=== PATIENT | male | born 1980 | race Caucasian/White ===

== ENCOUNTER 2023-11-04 16:40 | Emergency (ER) | payer OTHER, SELFPAY ==
[2023-11-04 16:52] VITALS: BP 178/99; PULSE 68; TEMP 37.2; O2SAT 96
--- NOTE | 2023-11-04 16:57 | XR_ITS ---
The [address] [address] Patient Name: YAMILEX JARAMILLO MRN: [id number] date: 1980 Sex: M Assigned Patient Location: ER Current Patient Location: ED.MAIN Accession/Order Number: [id number] Exam Date: 11/04/2023 17:45 Report Date: 11/04/2023 18:14 At the request of: ZAY CARBONE Procedure: XR hand RT min 3V Exam: Radiographs: XR hand RT min 3V Reason for exam: injury Comparison: None XR/XR hand RT min 3V IMPRESSION: Acute nondisplaced right fifth metacarpal fracture distally. Remainder of the right hand radiographs is unremarkable. Electronically authenticated by: JOSÉ ANTONIO RUTLEDGE Date: 11/04/2023 18:14
--- NOTE | 2023-11-04 18:26 | ED.UPPEXIN1 ---
HPI HPI - Extremity Injury (Upper) General Chief Complaint: Extremity Injury, Upper Stated Complaint: UPPER EXTREMITY INJURY-WC Time Seen by Provider: 11/04/23 16:56 Source: patient Mode of arrival: walk-in Limitations: no limitations History of Present Illness HPI narrative: 43-year-old male presents to the emergency department for pain and swelling to his right hand. He was at work 2 hours ago when he slipped and fell and hit his hand on the hard floor. No other injury was sustained. He is right-handed. The pain is moderate and worse if he moves it. Related Data Previous Rx's ?Medication ?Instructions ?Recorded acetaminophen 300 mg-codeine 30 mg 1 tab PO Q6H PRN pain 5 days #20 11/04/23 tablet tabs Allergies Allergy/AdvReac Type Severity Reaction Status Date / Time No Known Drug Allergies Allergy Verified 11/04/23 16:52 Opioid HPI Opioid Management Most Recent Pain and Opioid Data: Last Pain Scale 6 11/04/23 18:15 Review of Systems ROS Narrative A ten point review of systems is negative except as noted above. Exam Narrative Exam Narrative: Nurses note and vital signs reviewed and patient is not hypoxic. General: The patient appears well and in no apparent distress. Patient is resting comfortably on cart. Skin: Warm, dry, no pallor noted. There is no rash noted. Head: Normocephalic, atraumatic Eye: Normal conjunctiva, no drainage Ears, Nose, Mouth, and Throat: oral mucosa is moist. Nares patent. Cardiovascular: Regular Rate and Rhythm Respiratory: Patient is in no distress, no accessory muscle use Back: non-tender GI: Normal bowel sounds, no tenderness to palpation, no masses appreciated. No rebound, guarding, or rigidity noted. Musculoskeletal: He has bruising and swelling to the ulnar side of his right hand particular on the extensor side. Skin intact. No rotational deformity of his fingers which have full range of motion. Wrist is nontender. Neurological: A&O, normal speech Psychiatric: Cooperative Constitutional Vital Signs, click to edit/add: Last Vital Signs Temp 98.9 F 11/04/23 16:52 Pulse 68 11/04/23 16:52 Resp 17 11/04/23 16:52 BP 178/99 H 11/04/23 16:52 Pulse Ox 96 11/04/23 16:52 Course Vital Signs Vital signs: Vital Signs Temperature 98.9 F 11/04/23 16:52 Pulse Rate 68 11/04/23 16:52 Respiratory Rate 17 11/04/23 16:52 Blood Pressure 178/99 H 11/04/23 16:52 Pulse Oximetry 96 11/04/23 16:52 Temperature 98.9 F 11/04/23 16:52 Pulse Rate 68 11/04/23 16:52 Respiratory Rate 17 11/04/23 16:52 Blood Pressure 178/99 H 11/04/23 16:52 Pulse Oximetry 96 11/04/23 16:52 MDM - Extremity Injury (Upper) MDM Narrative Medical decision making narrative: Short arm splint was applied by me and application is appropriate, he is neurovascular intact. Sling also applied and application checked by me and found to be appropriate, he is neurovascular intact. He is referred to orthopedics. Treatment diagnosis and follow-up were discussed with the patient. Differential Diagnosis Differential diagnosis: Likely other (Hand fracture, hand contusion) Imaging Data Hand x-ray: Radiologist's impression: ITS Impressions Hand X-Ray 11/04/23 16:57 IMPRESSION: Acute nondisplaced right fifth metacarpal fracture distally. Remainder of the right hand radiographs is unremarkable. Electronically authenticated by: JOSÉ ANTONIO RUTLEDGE Date: 11/04/2023 18:14 Discharge Plan Discharge Stand Alone Forms: Portal Instructions Chief Complaint: Extremity Injury, Upper Clinical Impression: Fracture of fifth metacarpal bone Patient Disposition: Home, Self-Care Time of Disposition Decision: 18:24 Condition: Good Mode of Transportation: Private Vehicle Prescriptions / Home Meds: New acetaminophen-codeine 300-30 mg tablet 1 tab PO Q6H PRN (Reason: pain) 5 Days Qty: 20 0RF Print Language: [place] Instructions: Hand Fracture (ED) Additional Instructions: Do not remove splint and use sling until you see the orthopedist. Referrals: KANNAN CONNORS [Primary Care Provider] - 1 week Greg Harvey MD [Physician] - 1 week
== END 2023-11-04 18:36 | disposition home or self-care (01) ==
PROVIDERS: Emergency Provider Emergency Medicine; PCP Psychiatry & Neurology Neurology
DX: S62.306A Unspecified fracture of fifth metacarpal bone, right hand, initial encounter for closed fracture (principal); W01.10XA Fall on same level from slipping, tripping and stumbling with subsequent striking against unspecified object, initial encounter
CPT/HCPCS: 29125; 73130; 99283